=== PATIENT | female | born 1950 | race Caucasian/White ===

== ENCOUNTER 2017-07-23 17:23 | Emergency (ER) | payer MEDICARE, OTHER ==
[~2017-07-23] VITALS: Ht 157.5 cm; Wt 68.0 kg
[~2017-07-23 17:23] MED LIST: ADVAIR DISK1 INH; ALBUTEROL S2.5 MG/.5 IN; ALBUTEROL2.5 MG/3 M IN; ALBUTEROL2.5 MG/31 IN; AMOX/K CLAV875 M1 PO; AMOXICILLIN500 MG PO; ATROVENT I0.5 MG/VIA IN; CIPROFLOXACN500 MG PO; COMBIVENT IN; DALIRESP500 MCG PO; DEPO-MEDROL80 MG/ML IM; DUONEB IN; FLOVENT HFA44 MCG IN; FLUARIX QUADRIV1 IN1 IM; IPRATROPIUM BROMIDE; IPRATROPIUM BROMIDE IN; LEVOTHYROXIN50 MC1 PO; LEVOTHYROXIN88 MC1 PO; MEDDOSEPAK OR; MICARDIS HC1 OR; PNEUMOVAX 23 IM; PROVENTIL HFA IN; PROVENTIL0.083 %; SINGULAIR10 MG OR; [UNRECOGNIZED DRUG - OTHER] IN
[2017-07-23] MEDS ORDERED: PREDNISONE10 MG PO (17:53)
[2017-07-23 18:13] LABS: HEMATOCRIT 40.6 % (37.0-47.0); HEMOGLOBIN 13.6 g/dl (12.0-16.0); IMMATURE GRANULOCYTES 0.6 % (0.0-1.0); MEAN CELL VOLUME 99.5 fL CALC (80.0-100.0); MEAN CORPUSCULAR HGB 33.3 pG CALC (26.0-32.0); MEAN CORPUSCULAR HGB CONC 33.5 g/L CALC (32.0-36.0); NEUT# 12.11 thou/uL (2.00-7.15); RED BLOOD COUNT 4.08 mill/uL (4.20-5.60); RED CELL DISTRI WIDTH 11.6 % (11.5-15.5)
[2017-07-23 18:15] LABS: ANION GAP 15 (6-22 (CALC)); BUN 13 mg/dL (8-23); BUN/CREATININE RATIO 22 (12-20 (CALC)); CALCIUM 10.1 mg/dL (8.4-10.2); CARBON DIOXIDE 29 mmol/l (22-30); CHLORIDE 98 mmol/l (95-108); CREATININE 0.6 mg/dL (0.5-1.0); GFR > 60 ML/MIN (>=60 (CALC)); GFR FOR AFR.AMER. > 60 ML/MIN (>=60 (CALC)); GLUCOSE 237 mg/dL (82-115); POTASSIUM 4.7 mmol/l (3.5-5.1); SODIUM 137 mmol/l (137-146)
[2017-07-23 22:02] VITALS: BP 119/73
== END 2017-07-23 22:02 | disposition short-term general hospital (02) ==
LOC: ED 17:23
PROVIDERS: Family Medicine
PROC: 0B9 Respiratory System, Drainage (ICD-10-PCS; principal; 2017-07-23)
DX: S27.2XXA Traumatic hemopneumothorax, initial encounter (principal); W17.89XA Other fall from one level to another, initial encounter; Y92.009 Unspecified place in unspecified non-institutional (private) residence as the place of occurrence of the external cause

== ENCOUNTER 2021-01-24 16:10 | Observation (INO) | payer MEDICARE, MEDICAID ==
[~2021-01-24] VITALS: Ht 157.5 cm; Wt 64.8 kg
[~2021-01-24 16:10] MED LIST changes: +PREDNISONE10 MG PO
--- NOTE | 2021-01-24 16:11 | NUR ---
PT TO ROOM VIA W/C
[2021-01-24 16:52] LABS: HEMATOCRIT 38.2 % (37.0-47.0); HEMOGLOBIN 12.3 g/dl (12.0-16.0); IMMATURE GRANULOCYTES 0.5 % (0.0-5.0); MEAN CELL VOLUME 101.3 fL CALC (80.0-100.0); MEAN CORPUSCULAR HGB 32.6 pG CALC (26.0-32.0); MEAN CORPUSCULAR HGB CONC 32.2 g/dL CAL (32.0-36.0); NEUT# 9.26 thou/uL (2.00-7.15); RED BLOOD COUNT 3.77 mill/uL (4.20-5.60); RED CELL DISTRI WIDTH 11.9 % (11.5-15.5)
[2021-01-24 17:10] LABS: ALBUMIN 4.2 g/dL (3.2-5.0); ALKALINE PHOSPHATASE 118 u/l (38-126); ANION GAP 12 (6-22 (CALC)); BILIRUBIN, TOTAL 0.7 mg/dL (0.0-1.4); BUN 6 mg/dL (8-23); BUN/CREATININE RATIO 15 (12-20 (CALC)); CARBON DIOXIDE 34 mmol/l (22-30); CHLORIDE 87 mmol/l (95-108); CREATININE 0.4 mg/dL (0.5-1.0); GFR > 60 ML/MIN (>=60 (CALC)); GFR FOR AFR.AMER. > 60 ML/MIN (>=60 (CALC)); LIPASE 50 u/l (23-300); POTASSIUM 3.8 mmol/l (3.5-5.1); SGOT/AST 39 u/l (9-36); SODIUM 129 mmol/l (137-146); TOTAL PROTEIN 8.1 g/dL (6.3-8.2)
--- NOTE | 2021-01-24 17:53 | NUR ---
ADMIN 9ML DUONEB S/P COVID RESULTS, VIA MASK. PT C NAD. VSS. FAMILY IN ROOM C PT. PT SPEAKING FULL, CLEAR SENTENCES. AUTO SERVICE STATION ATTENDANT TO MONITOR.
--- NOTE | 2021-01-24 19:02 | NUR ---
REPORT TO TITI ANDERSON
--- NOTE | 2021-01-24 19:15 | NUR ---
PT ASSISTED TO BEDSIDE COMMODE, CONTINENT OF CLEAR YELLOW URINE SPECIMEN SENT, SELF KARL CARE COMPLETED. AWARE OF CONTIUED NEED FOR SPUTUM SPECIMEN. DAUGHTER AT BEDSIDE PT AND VISITOR AWARE OF PLANNED ADMISSION
--- NOTE | 2021-01-24 19:23 | NUR ---
REPORT CALLED TO DONNA ON MED SURG.
[2021-01-24] MEDS ORDERED: LEVOTHYROXIN100 MCG PO (19:27)
[2021-01-24] MEDS ORDERED: AMLODIPINE BES2.5 MG PO (19:28)
[2021-01-24] MEDS ORDERED: LOPRESSOR25 MG PO (19:29)
--- NOTE | 2021-01-24 19:49 | NUR ---
PT TRANSPORTED TO [facility] VIA WHEELCHAIR ON OXYGEN, WITH ALL BELONGINGS WITH PT, PT BELONGINGS RECORD COMPLETED.
[2021-01-24 20:00] VITALS: BP 144/71
--- NOTE | 2021-01-24 20:00 | NUR ---
PATIENT ARRIVED FROM ER AT 1999. REPORT GIVEN BY TITI. PATIENT IS ALERT AND ORIENTED X 4. RESP LABORED WITH 4L VIA NC. PRODUCTIVE COUGH PRESENT- GREEN, THICK SPUTUM. IV SLAINE LOCKED. PATIENT ORIENTED TO BED, CALL LIGHT AND ROOM. PLAN OF CARE DISCUSSED. PATIENT INFORMED TO CALL WITH ANY QUESTIONS OR CONCERNS.
--- NOTE | 2021-01-24 20:07 | NUR ---
ZITHROMAX NOT AVIALBLE IN [place], MIDDLE SCHOOL DIRECTOR CALLED FOR MEDICATION
[2021-01-24 20:34] LABS: URINE BILIRUBIN - DIPSTICK NEGATIVE (NEGATIVE); URINE BLOOD DIPSTICK LARGE (NEGATIVE); URINE CLARITY CLEAR; URINE COLOR YELLOW; URINE GLUCOSE - DIPSTICK NEGATIVE (NEGATIVE); URINE KETONE 15 mg/dL (NEGATIVE); URINE LEUK ESTERASE SMALL (Negative); URINE NITRITE - DIPSTICK NEGATIVE (Negative); URINE PROTEIN - DIPSTICK NEGATIVE (NEG-TRACE); URINE UROBILINOGEN - DIPSTICK 0.2 E.U./dL (0.2)
[2021-01-24 20:41] LABS: URINE SQUAMOUS EPITHELIAL CELL FEW EPI/hpf (0-FEW); URINE WBC 0-2 WBC/hpf (0-5)
[2021-01-25] VITALS: BP 108/62
--- NOTE | 2021-01-25 00:08 | NUR ---
PATIENT RESTING WITH EYE CLOSED. FALL AND SAFTEY PRECAUTIONS IN PLACE. LABORED BREATHING WITH EXCERTION.
[2021-01-25 03:18] VITALS: BP 123/56
[2021-01-25 05:02] LABS: HEMATOCRIT 38.6 % (37.0-47.0); HEMOGLOBIN 12.5 g/dl (12.0-16.0); IMMATURE GRANULOCYTES 0.7 % (0.0-5.0); MEAN CELL VOLUME 102.1 fL CALC (80.0-100.0); MEAN CORPUSCULAR HGB 33.1 pG CALC (26.0-32.0); MEAN CORPUSCULAR HGB CONC 32.4 g/dL CAL (32.0-36.0); NEUT# 7.82 thou/uL (2.00-7.15); RED BLOOD COUNT 3.78 mill/uL (4.20-5.60); RED CELL DISTRI WIDTH 11.9 % (11.5-15.5)
--- NOTE | 2021-01-25 05:07 | NUR ---
PASTIENT RESTING WITH EYES CLOSED. FALL AND SAFTEY PRECAUTIONS IN PLACE. NO S/S OF DISTRESS NOTED.
[2021-01-25 05:25] LABS: ANION GAP 10 (6-22 (CALC)); BUN 7 mg/dL (8-23); BUN/CREATININE RATIO 18 (12-20 (CALC)); CARBON DIOXIDE 35 mmol/l (22-30); CHLORIDE 93 mmol/l (95-108); CREATININE 0.4 mg/dL (0.5-1.0); GFR > 60 ML/MIN (>=60 (CALC)); GFR FOR AFR.AMER. > 60 ML/MIN (>=60 (CALC)); POTASSIUM 4.3 mmol/l (3.5-5.1); SODIUM 133 mmol/l (137-146)
--- NOTE | 2021-01-25 07:08 | NUR ---
PT RESTING COMFORTABLY IN BED. NAD. VSS. SPEAKING FULL CLEAR SENTENCES.
[2021-01-25 08:00] VITALS: BP 136/52
--- NOTE | 2021-01-25 09:57 | NUR ---
PT AWAKE, ALERT, ORIENTED X 3. LUNGS CLEAR BUT DIMINISHED IN THE BASES, PT USES 4 LPM HERE AND AT HOME. PT APPEARS TO BE DOING WELL TODAY.
[2021-01-25 11:33] VITALS: BP 111/47
--- NOTE | 2021-01-25 13:50 | NUR ---
PT SEEN AT REST IN THE ROOM, NO DISTRESS. PT CONTINUES WITH 4 LPM NC AT HOME.
--- NOTE | 2021-01-25 14:00 | NUR ---
PT RESTING IN BED. NAD. VSS. CLERK ANALYST TO MONITOR.
--- NOTE | 2021-01-25 16:24 | NUR ---
PT SEEN IN BED, NAPPING. NO DISTRESS, NO COMPLAINTS OF SHORTNESS OF BREATH.
[2021-01-25 16:27] VITALS: BP 127/56
--- NOTE | 2021-01-25 19:19 | NUR ---
REPORT GIVEN BY KATY. PATIENT IS IN BED WATCHING TV. RESP LABORED WITH EXCERTION AND AT TIMES SHALLOW BREATHS TAKEN, 4L O2 VIA NC. ALERT AND ORIENTED X 4. PRODUCTIVE COUGH PRESENT WITH THICK GREEN SPUTUM. NO S/S OF DISTRESS NOTED. IV SALINE LOCKED. PLAN OF CARE DISCUSSED. PATIENT INFORMED TO CALL WITH ANY QUESTIONS OR CONCERNS. FALL AND SAFTEY PRECAUTIONS IN PLACE.
[2021-01-25 19:50] VITALS: BP 118/60
[2021-01-26] VITALS: BP 115/63
[2021-01-26 04:00] VITALS: BP 140/68
[2021-01-26 05:40] LABS: HEMATOCRIT 38.7 % (37.0-47.0); IMMATURE GRANULOCYTES 1.1 % (0.0-5.0); MEAN CELL VOLUME 103.5 fL CALC (80.0-100.0); MEAN CORPUSCULAR HGB 32.1 pG CALC (26.0-32.0); NEUT# 11.63 thou/uL (2.00-7.15); RED BLOOD COUNT 3.74 mill/uL (4.20-5.60); RED CELL DISTRI WIDTH 12.2 % (11.5-15.5)
[2021-01-26 05:51] LABS: ALBUMIN 3.8 g/dL (3.2-5.0); ALKALINE PHOSPHATASE 87 u/l (38-126); ANION GAP 9 (6-22 (CALC)); BUN 13 mg/dL (8-23); BUN/CREATININE RATIO 27 (12-20 (CALC)); CARBON DIOXIDE 36 mmol/l (22-30); CHLORIDE 95 mmol/l (95-108); CREATININE 0.5 mg/dL (0.5-1.0); GFR > 60 ML/MIN (>=60 (CALC)); GFR FOR AFR.AMER. > 60 ML/MIN (>=60 (CALC)); SGOT/AST 29 u/l (9-36); SODIUM 136 mmol/l (137-146)
[2021-01-26 06:22] LABS: BILIRUBIN, TOTAL 0.3 mg/dL (0.0-1.4)
[2021-01-26 07:39] VITALS: BP 114/47
--- NOTE | 2021-01-26 09:34 | NUR ---
PT SEEN AWAKE, ALERT, ORIENTED X 3. LUNGS CLEAR BUT DIMINISHED THROUGHOUT, USES 4 LPM NC. PT WITH DIFFICULTY CLEARING THICK PHLEGM.
[2021-01-26 11:17] VITALS: BP 141/60
--- NOTE | 2021-01-26 13:54 | NUR ---
PT SEEN AT REST IN THE BED, NO DISTRESS. PT SEEN BY DR PELAYO THIS MORNING.
[2021-01-26 15:00] VITALS: BP 126/52
--- NOTE | 2021-01-26 17:43 | NUR ---
PT CONTINUES BEFORE, NO ACUTE CHANGE IN STATUS.
--- NOTE | 2021-01-26 19:16 | NUR ---
RECEIVED REPORT FROM NURSE BURNS PATIENT CURRENTLY IN BED, HOOKED TO O2 @ 4LPM VIA NC, SHALLOW UNLABORED BREATHING AT THIS TIME, PRODUCTIVE COUGH YELLOW THICK, ACTIVE BOWEL SOUNDS, LBM 5/30, SCATTERED BRUISING BOTH ARMS AND FEET,DENIES PAIN AT THIS TIME, CALL LIGHT AT REACH.
[2021-01-26 19:50] VITALS: BP 138/69
[2021-01-27] VITALS: BP 145/77
--- NOTE | 2021-01-27 | NUR ---
PATIENT SITTING IN BED HAVING COUGH SPELLS, EASING UP PER PATIENT REMAINS ON O2 @ 4LPM VIA NC, DENIES PAIN CALL LIGHT AT REACH.
--- NOTE | 2021-01-27 04:20 | NUR ---
PATIENT RESTING IN BED, EYS CLOSED, REMAINS ON O2 @ 4LPM VIA NC, BREATHING SHALLOW, UNLABORED, CALL LIGHT AT REACH.
[2021-01-27 04:41] VITALS: BP 138/75
--- NOTE | 2021-01-27 07:00 | NUR ---
PT REPORT RECEIVED FROM NIGHT NURSEQUINTON
[2021-01-27 07:30] VITALS: BP 149/67
--- NOTE | 2021-01-27 08:00 | NUR ---
PT WAS FOUND RESTING IN BED IN SEMI-FOWLERS POSITION;PT IS A&OX3;VS AND ASSESSMENT WERE COMPLETED;PT IS REPORTING NO PAIN AT THIS TIME;HEART SOUNDS ARE REGULAR IN RATE AND RHYTHM;TELE IS IN PLACE;LUNG SOUNDS ARE DIMINISHED IN ALL LOBES;RESPIRATIONS ARE EVEN AND UNLABORED ON O2@4L VIA NC;PT IS REPORTING EXERTIONAL SOB AND PRODUCTIVE COUGH WITH THICK,WHITE,FROTHY SPUTUM;#22G IV IN LW IS SL, PATENT AND FREE OF COMPLICATIONS AT THIS TIME;SAFETY PRECAUTIONS IN PLACE;CALL LIGHT WITHIN REACH;BED IN LOWEST POSITION;PT ENCOURAGED TO CALL WITH ANY NEEDS OR CONCERNS;WILL CONTINUE TO MONITOR.
[2021-01-27] MEDS ORDERED: PREDNISONE20 MG PO (10:46)
[2021-01-27 11:10] VITALS: BP 150/73
--- NOTE | 2021-01-27 12:00 | NUR ---
PT WAS FOUND SITTING UP ON THE SIDE OF THE BED;PT IS BEING DISCHARGED TODAY SO IV WAS REMOVED WELL TELE;PT IS REPORTING NO PAIN AT THIS TIME;O2@4L VIA NC IS STILL IN PLACE;SAFETY PRECAUTIONS IN PLACE;CALL LIGHT WITHIN REACH;BED IN LOWEST POSITION;WILL CONTINUE TO MONITOR.
[2021-01-27] MEDS ORDERED: ZITHROMAX250 MG PO (12:37)
--- NOTE | 2021-01-27 13:34 | NUR ---
Discharge instructions given. Patient verbalizes understanding of same. Discharged in stable condition via Wheelchair to Home with family. All belongings sent with pt. DISCHARGE PACKET WAS GIVEN TO PT;DC INSTRUCTIONS AND MEDICATIONS WERE EXPLAINED TO PT;PT EXPRESSED UNDERSTANDING AND HAD NO FURTHER QUESTIONS;SIGNATURE WAS OBTAINED;IV WAS REMOVED WITH NO COMPLICATIONS AND CATHETER INTACT;TELE WAS REMOVED; PT WAS TRANSPORTED IN STABLE CONDITION VIA WC TO [facility] ACCOMPANIED BY STAFF;ALL PT BELONGINGS WERE SENT WITH PT;PT WILL BE TRANSPORTED HOME WITH FAMILY.
== END 2021-01-27 13:34 | disposition home or self-care (01) ==
LOC: ED 16:10 → ED-I 18:20 → ED 18:31 → MS2 18:32
PROVIDERS: ADMIT Internal Medicine; ATTEND Internal Medicine
DX: J44.1 Chronic obstructive pulmonary disease with (acute) exacerbation (principal); J20.9 Acute bronchitis, unspecified; J44.0 Chronic obstructive pulmonary disease with (acute) lower respiratory infection; J96.21 Acute and chronic respiratory failure with hypoxia; I10 Essential (primary) hypertension; E03.9 Hypothyroidism, unspecified; Z99.81 Dependence on supplemental oxygen; Z20.822 Contact with and (suspected) exposure to COVID-19
CPT/HCPCS: G0378

== ENCOUNTER 2021-02-16 03:16 | Observation (INO) | payer MEDICARE, MEDICAID ==
[~2021-02-16] VITALS: Ht 157.5 cm; Wt 61.0 kg
[~2021-02-16 03:16] MED LIST changes: +AMLODIPINE BES2.5 MG PO; +LEVOTHYROXIN100 MCG PO; +LOPRESSOR25 MG PO; +PREDNISONE20 MG PO; +ZITHROMAX250 MG PO
--- NOTE | 2021-02-16 03:17 | NUR ---
BY EMS TO ROOM ON NRB MASK CHANGED TO 4L/NC
--- NOTE | 2021-02-16 03:47 | NUR ---
Reassessment of patient completed.
[2021-02-16 03:54] LABS: HEMATOCRIT 40.8 % (37.0-47.0); HEMOGLOBIN 13.4 g/dl (12.0-16.0); IMMATURE GRANULOCYTES 0.5 % (0.0-5.0); MEAN CELL VOLUME 100.2 fL CALC (80.0-100.0); MEAN CORPUSCULAR HGB 32.9 pG CALC (26.0-32.0); MEAN CORPUSCULAR HGB CONC 32.8 g/dL CAL (32.0-36.0); NEUT# 11.96 thou/uL (2.00-7.15); RED BLOOD COUNT 4.07 mill/uL (4.20-5.60); RED CELL DISTRI WIDTH 11.8 % (11.5-15.5)
[2021-02-16 04:04] LABS: ALBUMIN 4.2 g/dL (3.2-5.0); ALKALINE PHOSPHATASE 75 u/l (38-126); ANION GAP 12 (6-22 (CALC)); BILIRUBIN, TOTAL 0.4 mg/dL (0.0-1.4); BUN 17 mg/dL (8-23); BUN/CREATININE RATIO 34 (12-20 (CALC)); CARBON DIOXIDE 31 mmol/l (22-30); CHLORIDE 92 mmol/l (95-108); CREATININE 0.5 mg/dL (0.5-1.0); GFR > 60 ML/MIN (>=60 (CALC)); GFR FOR AFR.AMER. > 60 ML/MIN (>=60 (CALC)); POTASSIUM 3.8 mmol/l (3.5-5.1); SODIUM 131 mmol/l (137-146); TOTAL PROTEIN 6.9 g/dL (6.3-8.2)
[2021-02-16 04:14] LABS: SGOT/AST 74 u/l (9-36)
[2021-02-16 04:16] LABS: MYOGLOBIN 30 ng/mL (0 - 62)
--- NOTE | 2021-02-16 04:41 | NUR ---
Reassessment of patient completed. No distress noted. Pt resting quietly in room, call light within reach, one side rail is up.
[2021-02-16 05:25] VITALS: BP 153/83
--- NOTE | 2021-02-16 05:25 | NUR ---
Admission Note Report Given to: ALLEN Transported by: Wheelchair Stretcher Transported with: X Nurse Transporter Patent IV O2 Bi Solutions Architect Location: ICU X MS2
--- NOTE | 2021-02-16 06:00 | NUR ---
PT MEDICATED ORDERS PROVIDE.
--- NOTE | 2021-02-16 07:00 | NUR ---
PT REPORT RECEIVED FROM NIGHT NURSEALLEN.
[2021-02-16 08:00] VITALS: BP 149/84
--- NOTE | 2021-02-16 08:00 | NUR ---
PT WAS FOUND RESTING IN BED IN SEMI-TALAVERA'S POSITION;PT IS A&O X3;VS AND ASSESSMENT WERE COMPLETED;PT HAS NO REPORTS OF PAIN AT THIS TIME;HEART SOUNDS ARE REGULAR IN RATE AND RHYTHM;LUNG SOUNDS ARE CLEAR AND DIMINISHED IN ALL LOBES;PT IS REPORTING A PRODUCTIVE COUGH WITH A SMALL AMOUNT OF CLEAR, THICK SPUTUM;RESPIRATIONS ARE EVEN AND UNLABORED ON O2@2L VIA NC;#20G IV IN LAC IS SL,PATENT AND FREE OF COMPLICATIONS AT THIS TIME;SAFETY PRECAUTIONS IN PLACE;CALL LIGHT WITHIN REACH;PT ENCOURAGED TO CALL WITH ANY NEEDS OR CONCERNS;BED IN LOWEST POSITION;WILL CONTINUE TO [id number].
--- NOTE | 2021-02-16 09:15 | NUR ---
PT VOICED CONCERNS OVER HER NOSE FEELING DRY AND REQUESTED HUMIDIFIED AIR BE ADDED TO HER O2 AT THIS TIME;PT CONTINUES TO HAVE O2@2L VIA NC IN PLACE;
[2021-02-16 09:33] LABS: URINE BILIRUBIN - DIPSTICK NEGATIVE (NEGATIVE); URINE BLOOD DIPSTICK LARGE (NEGATIVE); URINE COLOR YELLOW; URINE GLUCOSE - DIPSTICK NEGATIVE (NEGATIVE); URINE KETONE TRACE mg/dL (NEGATIVE); URINE LEUK ESTERASE NEGATIVE (NEGATIVE); URINE PROTEIN - DIPSTICK TRACE mg/dL (NEG-TRACE); URINE SPECIFIC GRAVITY 1.025; URINE UROBILINOGEN - DIPSTICK 0.2 E.U./dL (0.2)
[2021-02-16 09:39] LABS: URINE NITRITE - DIPSTICK NEGATIVE (Negative)
[2021-02-16 09:56] LABS: URINE SQUAMOUS EPITHELIAL CELL FEW EPI/hpf (0-FEW); URINE WBC 0-2 WBC/hpf (0-5)
--- NOTE | 2021-02-16 10:30 | NUR ---
AND DAPHNIE BIRMINHGAM AT BEDSIDE DISCUSSING POC WITH PT
--- NOTE | 2021-02-16 12:00 | NUR ---
PT WAS FOUND SITTING UP ON THE SIDE OF THE BED EATING LUNCH;O2@2L VIA NC IS IN PLACE;NEWLY ORDERED MEDICATIONS WERE GIVEN;PT EXPRESSED ANXIETY AND NEEDING TO REST;ATIVAN 1MG PO PRN WAS GIVEN;SAFETY PRECAUTIONS IN PLACE;CALL LIGHT WITHIN REACH;WILL CONTINUE TO MONITOR.
[2021-02-16 15:00] VITALS: BP 117/52
--- NOTE | 2021-02-16 16:00 | NUR ---
PT WAS FOUND RESTING IN BED IN SEMI-TALAVERA'S POSITION;PT IS REPORTING SOB;PULSE OX WAS TAKEN AND O2 SAT WAS 99% ON O2@2L VIA NC;PT IS REPORTING FEELING ANXIOUS AND SHE JUST NEEDS TO RELAX;#20G IV IN LAC IS SL,PATENT AND FREE OF COMPLICATIONS AT THIS TIME;SAFETY PRECAUTIONS IN PLACE;CALL LIGHT WITHIN REACH;WILL CONTINUE TO MONITOR
--- NOTE | 2021-02-16 16:15 | NUR ---
CALL WAS MADE TO ;PT HAD DAUGHTER BRING IN HER HOME MEDICATIONS/PREDNISONE,DULERA AND SPIRIVA RESPIMAT/ SO SHE COULD USE THEM HERE; ADVISED TO CONTINUE WITH HOME MEDS IN PLACE OF DUONEBS TREATMENT HERE;ORDER FAXED TO [facility] WILL BE SENT TO PHARMACY TO PROFILE;
[2021-02-16 19:45] VITALS: BP 144/85
--- NOTE | 2021-02-16 19:48 | NUR ---
PT SITTING ON THE SIDE OF THE BED. ASSESSMENT COMPLETED AT THIS TIME. LUNG SOUNDS ARE DIMINISHED. PT REPORTS THAT SHE EATS A COUPLE OF BITES AND RESTS IN BETWEEN DUE TO GETTING SOB WHILE EATING OR TALKING. PT IS VERY TALKATIVE AT THIS TIME. OXYGEN W/HUMIDITY IS ON NC 2L. PT MEDICATED ORDERS PROVIDE.
--- NOTE | 2021-02-16 20:02 | NUR ---
PT SITTING ON SIDE OF THE BED JUST FINISHED DINNER TRAY. PROVIDED MEDICATIONS ORDERS PROVIDE AND WARMED PRUNE JUICE/REFUSED MOM TO BE ADDED. 3X DAYS FOR STOOL OUTPUT AT THIS TIME.
--- NOTE | 2021-02-16 23:40 | NUR ---
PT MEDICATED FOR ANXIOUSNESS. DENIES ANY OTHER NEEDS AT THIS TIME. V/S WERE JUST ASSESSED.
[2021-02-16 23:45] VITALS: BP 122/81
--- NOTE | 2021-02-17 02:36 | NUR ---
PT IS IN BED WITH DOOR OPEN, LIGHTS ARE OFF. SHE APPEARS TO BE SLEEPING, EVEN RESPIRATIONS, NO S/O DISTRESS.
--- NOTE | 2021-02-17 03:40 | NUR ---
V/S ASSESSED. OXYGEN SAT LEVEL 100% ON 2L NC AT THIS TIME. PT WAS ASLEEP WHEN WE ENTERED THE ROOM. DENIES ANY OTHER NEEDS.
[2021-02-17 04:00] VITALS: BP 123/72
[2021-02-17 05:29] LABS: HEMATOCRIT 36.2 % (37.0-47.0); HEMOGLOBIN 11.8 g/dl (12.0-16.0); MEAN CELL VOLUME 101.7 fL CALC (80.0-100.0); MEAN CORPUSCULAR HGB 33.1 pG CALC (26.0-32.0); MEAN CORPUSCULAR HGB CONC 32.6 g/dL CAL (32.0-36.0); RED BLOOD COUNT 3.56 mill/uL (4.20-5.60); RED CELL DISTRI WIDTH 11.9 % (11.5-15.5)
[2021-02-17 05:53] LABS: ALBUMIN 3.5 g/dL (3.2-5.0); ALKALINE PHOSPHATASE 59 u/l (38-126); ANION GAP 11 (6-22 (CALC)); BUN 20 mg/dL (8-23); BUN/CREATININE RATIO 44 (12-20 (CALC)); CARBON DIOXIDE 33 mmol/l (22-30); CHLORIDE 92 mmol/l (95-108); CREATININE 0.4 mg/dL (0.5-1.0); GFR > 60 ML/MIN (>=60 (CALC)); GFR FOR AFR.AMER. > 60 ML/MIN (>=60 (CALC)); SGOT/AST 48 u/l (9-36); SODIUM 132 mmol/l (137-146)
[2021-02-17 05:54] LABS: BILIRUBIN, TOTAL 0.2 mg/dL (0.0-1.4)
--- NOTE | 2021-02-17 07:15 | NUR ---
REPORT RECEIVED FROM MONICA VILLA
[2021-02-17 08:19] VITALS: BP 133/64
--- NOTE | 2021-02-17 08:25 | NUR ---
PT RESTING IN SEMI FOWLERS POSITION EATING BREAKFAST,A&O X3;VS OBTAINED AND ASSESSMENT COMPLETED;PT DENIES ANY CURRENT PAIN OR DISCOMFORTS,PAIN SCALE AND REPORTING EDUCATED;PT MEDICATED WITH PRN ATIVAN 1MG PO PER REQUEST;RESPIRATIONS SHALLOW ON O2 @ 2L VIA NC, PT IS HOME OXYGEN DEPENDENT;ABDOMEN SOFT ON PALPATION AND ACTIVE IN ALL 4 QUADRANTS;LAST BM 02/14/21, PT MEDICATED WITH PRN MOM;WEAK PEDAL PULSES;GENERALIZED BRUISING NOTED,SKIN OTHERWISE INTACT;#20G TO LAC FLUSHED AND PATENT,SITE APPEARS HEALTHY;PT DENIES ANY ADDITIONAL NEEDS AND IS ENCOURAGED TO CALL FOR ASSISTANCE IF NEEDED;FALL PRECAUTIONS IN PLACE WITH BED IN THE LOWEST POSITION AND CALL LIGHT IN REACH;WILL CONTINUE TO MONITOR
--- NOTE | 2021-02-17 11:40 | NUR ---
PT RESTING AT BEDSIDE;RESPIRATIONS EVEN AND UNLABORED ON O2 @ 2L VIA NC;PT DENIES ANY CURRENT PAIN OR NEEDS;IV SITE PATENT;ASSESSMENT REMAINS UNCHANGED;ENCOURAGED TO CALL FOR ASSISTANCE IF NEEDED;CALL LIGHT IN REACH;WILL CONTINUE TO MONITOR
[2021-02-17 11:44] VITALS: BP 133/70
--- NOTE | 2021-02-17 15:25 | NUR ---
PT RESTING IN SEMI FOWLERS POSITION;RESPIRATIONS EVEN AND UNLABORED ON O2 @ 2L VIA NC;PT DENIES ANY CURRENT PAIN OR DISCOMFORTS;IV SITE PATENT;PT ENCOURAGED TO CALL FOR ASSISTANCE IF NEEDED;FALL PRECAUTIONS IN PLACE WITH CALL LIGHT IN REACH;WILL CONTINUE TO MONITOR
[2021-02-17 15:32] VITALS: BP 123/60
[2021-02-17 19:00] VITALS: BP 133/72
--- NOTE | 2021-02-17 20:00 | NUR ---
PATIENT RESTING IN BED WATCHING TV, REPORT GIVEN BY NURSE DARION, PATIENT HAS A SALINE LOCK ON LAC PATENT FLUSHES WELL, DENIES PAIN AT THIS TIME, VERBALIZED THAT SHE HAS WEAKNESS, NON PRODUCTIVE COUGH, DIMISHED LUNG SOUNDS ON BILATERAL LUNG FIELD, ACTIVE BOWEL SOUNDS LBM 02/14, PRUNE JUICE GIVEN, ON O2 @ 2LPM NC, BREATHING SHALLOW, EXERTIONAL DYSPNEA NOTED, PATIENT C/O ANXIETY WILL MEDICATE, PATIENT ASSISTED TO BEDSIDE COMODE AND ASSISTED BACK IN BED, CALL LIGHT AT REACH.
--- NOTE | 2021-02-17 23:56 | NUR ---
PATIENT RESTING IN BED WITH EYES CLSOED, BREATHING SHALLOW, NOT IN DISTRESS REMAINS ON O2 @ 2LPM VIA NC CALL LIGHT AT REACH.
--- NOTE | 2021-02-18 03:50 | NUR ---
PATIENT RESTING IN BED WITH EYES CLOSED, REMAINS ON O2 @ 2LPM, NOT IN DISTRESS, NO DISCOMFORTS AT THIS TIME, CALL LIGHT AT REACH.
[2021-02-18 04:00] VITALS: BP 116/49
[2021-02-18 06:48] LABS: HEMATOCRIT 37.9 % (37.0-47.0); HEMOGLOBIN 12.4 g/dl (12.0-16.0); MEAN CELL VOLUME 101.6 fL CALC (80.0-100.0); MEAN CORPUSCULAR HGB 33.2 pG CALC (26.0-32.0); MEAN CORPUSCULAR HGB CONC 32.7 g/dL CAL (32.0-36.0); RED BLOOD COUNT 3.73 mill/uL (4.20-5.60); RED CELL DISTRI WIDTH 11.8 % (11.5-15.5)
[2021-02-18 07:00] LABS: ANION GAP 9 (6-22 (CALC)); BUN 16 mg/dL (8-23); BUN/CREATININE RATIO 34 (12-20 (CALC)); CARBON DIOXIDE 38 mmol/l (22-30); CHLORIDE 89 mmol/l (95-108); CREATININE 0.5 mg/dL (0.5-1.0); GFR > 60 ML/MIN (>=60 (CALC)); GFR FOR AFR.AMER. > 60 ML/MIN (>=60 (CALC)); POTASSIUM 4.2 mmol/l (3.5-5.1); SODIUM 132 mmol/l (137-146)
[2021-02-18 07:01] LABS: MAGNESIUM 2.5 mg/dL (1.6-2.3)
--- NOTE | 2021-02-18 07:10 | NUR ---
REPORT RECEIVED FROM MONICA HAIRSTON
[2021-02-18 08:35] VITALS: BP 124/60
--- NOTE | 2021-02-18 08:35 | NUR ---
PT RESTING ON BEDSIDE COMMMODE,A&O X3;VS OBTAINED AND ASSESSMENT COMPLETED;PT DENIES ANY CURRENT PAIN BUT DOES REPORT ANXIETY,PT MEDICATED WITH PRN ATIVAN 1MG PO;RESPIRATIONS SHALLOW ON O2 @ 2L VIA NC-PT IS HOME OXYGEN DEPENDENT;NON-PRODUCTIVE COUGH;ABDOMEN SOFT ON PALPATION AND ACTIVE IN ALL 4 QUADRANTS;WEAK PEDAL PULSES;SKIN INTACT;#20G TO LAC FLUSHED AND PATENT,SITE APPEARS HEALTHY;PT DENIES ANY ADDITIONAL NEEDS AND IS NECOURAGED TO CALL FOR ASSISTANCE IF NEEDED;FALL PRECAUTIONS IN PLACE WITH CALL LIGHT IN REACH;WILL CONTINUE TO MONITOR
--- NOTE | 2021-02-18 09:11 | NUR ---
AT BEDSIDE DISCUSSING POC.
[2021-02-18] MEDS ORDERED: PREDNISONE10 MG PO ×2 (11:17→11:19)
[2021-02-18] MEDS ORDERED: XANAX0.25 MG PO (11:17)
[2021-02-18] MEDS ORDERED: ZPAK PO (11:28)
--- NOTE | 2021-02-18 12:00 | NUR ---
PT RESTING AT BEDSIDE EATING LUNCH;RESPIRATIONS EVEN AND UNLABORED ON O2 @ 2L VIA NC;PT DENIES ANY CURRENT PAIN OR DISCOMFORTS;IV SITE PATENT AND ABX STARTED PER ORDER;PT EDUCATED ON PLANS TO D/C TO REHAB THIS AFTERNOON AND PT VERBALIZES UNDERSTANDING;AWAITING APPROX TIME FOR TRANSPORTATION PICKUP;PT ENCOURAGED TO CALL FOR ASSISTANCE IF NEEDED;CALL LIGHT IN REACH;WILL CONTINUE TO MONITOR
--- NOTE | 2021-02-18 13:45 | NUR ---
ALL DISCHARGE INSTRUCTIONS PROVIDED AT THIS TIME;PT INSTRUCTED TO F/U WITH PCP, PARTICIPATE IN REHAB, TAKE XANAX DIRECTED, COMPLETE COURSE OF ZPACK AND TAPER DOSE PREDNISONE;PT VERBALIZES UNDERSTANDING AND DENIES ANY ADDITIONAL QUESTIONS OR NEEDS;IV REMOVED WITH CATHETER INTACT;PT TO BE DISCHARGED TO [facility] VIA [facility] AT APROX 1430;PT DENIES ANY ADDITIONAL NEEDS;CALL LIGHT IN REACH;WILL CONTINUE TO MONITOR
--- NOTE | 2021-02-18 13:56 | NUR ---
REPORT CALLED TO SHYANN AT [facility].
--- NOTE | 2021-02-18 15:40 | NUR ---
PT RESTING IN SEMI FOWLERS POSITION;RESPIRATIONS EVEN AND UNLABORED ON O2 @ 2L VIA NC;PT DENIES ANY CURRENT PAIN OR NEEDS;TRANSPORTATION TIME MOVED DUE TO [facility] NEEDING TO TRANSPORT A CRITICAL PT FROM ER, PT EDUCATED AND VERBALIZES UNDERSTANDING;PT DENIES ANY ADDITIONAL NEEDS AND IS ENCOURAGED TO CALL FOR ASSISTANCE IF NEEDED;CALL LIGHT IN REACH;WILL CONTINUE TO MONITOR
--- NOTE | 2021-02-18 16:14 | NUR ---
PT note- patient is discharging to ECF. She is already a little dyspneic and I did speak with her about energy conservation as she left. She has cris her inpatient PT goals and should do well with follow up ECF care
--- NOTE | 2021-02-18 18:18 | NUR ---
CALL PLACED TO [facility] REGARDING PT RIDING DOUBLE TIME FOR TRANSPORT TO [facility], PER KEE AT [facility] TRANSPORT SHOULD BE ARRIVING AT APPROX [phone]. PATIENT NOTIFIED AND VERBALIZES UNDERSTANDING.MONICA BOOTHE AT [facility] ALSO NOTIFIED AT THIS TIME.
[2021-02-18 19:00] VITALS: BP 135/69
--- NOTE | 2021-02-18 20:00 | NUR ---
PT IN BED RESTING QUIETLY, ASSESSMENTS COMPLETED AT BEDSIDE. NO COMPLAINTS VOICED, BREATHING EVEN AND UNLABORED. ANICIPATED TRANSFER TO [facility], PENDING TRANSPORT COMPANY AT THIS TIME. HS MEDS ADMINSTERED PER ORDER, WILL MONITOR
[2021-02-18 20:25] VITALS: BP 135/69
--- NOTE | 2021-02-18 22:52 | NUR ---
PT LEFT VIA [facility], @ 2050 PT WAS ON A STRETCHER WITH O2 @ 2L CONTINUOUS. ALL PAPERWORK GIVEN TO TRANSPORT. NO COMPLAINTS VOICED. D/C PAPERWORK FAXED TO REGISTRATION.
--- NOTE | 2021-02-24 10:05 | NUR ---
Pneumonia post discharge follow up call completed today, `. Pt\s daughter returned call with patient. Patient is in rehab in [place] and doing very well. She will be there aprx. 1 additional week before returning to her home. Family appreciative of follow up call. No needs at this time.
== END 2021-02-18 22:52 ==
LOC: ED 03:16 → ED-I 04:25 → ED 04:42 → MS2 04:43
PROVIDERS: Family Medicine; Nurse Practitioner; Nurse Practitioner Family; ADMIT Internal Medicine; ATTEND Internal Medicine
DX: J44.1 Chronic obstructive pulmonary disease with (acute) exacerbation (principal); J20.9 Acute bronchitis, unspecified; J44.0 Chronic obstructive pulmonary disease with (acute) lower respiratory infection; R53.1 Weakness; I10 Essential (primary) hypertension; F41.9 Anxiety disorder, unspecified; Z91.81 History of falling; Z87.891 Personal history of nicotine dependence; Z20.822 Contact with and (suspected) exposure to COVID-19
CPT/HCPCS: G0378; J1650

== ENCOUNTER 2021-04-10 17:02 | Observation (INO) | payer MEDICARE, MEDICAID ==
[~2021-04-10] VITALS: Ht 157.5 cm; Wt 54.6 kg
[~2021-04-10 17:02] MED LIST changes: +XANAX0.25 MG PO; +ZPAK PO
--- NOTE | 2021-04-10 17:10 | NUR ---
TO ROOM FOR TRIAGE WITH JT AT BEDSIDE. PATIENT USES NC OXYGEN AT 3 LPM.
--- NOTE | 2021-04-10 18:00 | NUR ---
TO BEDSIDE COMMODE WITH ASISTANCE O VOID.
[2021-04-10 18:59] LABS: IMMATURE GRANULOCYTES 0.4 % (0.0-5.0); MEAN CORPUSCULAR HGB 32.7 pG CALC (26.0-32.0); MEAN CORPUSCULAR HGB CONC 31.4 g/dL CAL (32.0-36.0); NEUT# 3.4 thou/uL (2.00-7.15)
[2021-04-10 19:00] LABS: HEMATOCRIT 31.2 % (37.0-47.0); HEMOGLOBIN 9.8 g/dl (12.0-16.0)
[2021-04-10 19:14] LABS: ALBUMIN 3.6 g/dL (3.2-5.0); BUN 5 mg/dL (8-23); BUN/CREATININE RATIO 11 (12-20 (CALC)); C-REACTIVE PROTEIN 8.3 mg/dL (0-0.9); CHLORIDE 91 mmol/l (95-108); CREATININE 0.4 mg/dL (0.5-1.0); GFR > 60 ML/MIN (>=60 (CALC)); GFR FOR AFR.AMER. > 60 ML/MIN (>=60 (CALC)); POTASSIUM 3.6 mmol/l (3.5-5.1); SGOT/AST 41 u/l (9-36); SODIUM 133 mmol/l (137-146)
[2021-04-10 19:17] LABS: ALKALINE PHOSPHATASE 96 u/l (38-126); ANION GAP 7 (6-22 (CALC)); BILIRUBIN, TOTAL 0.3 mg/dL (0.0-1.4); CARBON DIOXIDE 39 mmol/l (22-30)
--- NOTE | 2021-04-10 19:36 | NUR ---
Reassessment of patient completed. No distress noted.
--- NOTE | 2021-04-10 20:27 | NUR ---
Reassessment of patient completed. No distress noted.
--- NOTE | 2021-04-10 21:57 | NUR ---
Admission Note Report Given to: QUINTON ANDERSON Transported by: X Wheelchair Stretcher Transported with: X Nurse Transporter X Patent IV X O2 Electro Mechanical Assembler Location: ICU X MS2
[2021-04-10 22:00] VITALS: BP 154/66
--- NOTE | 2021-04-10 22:45 | NUR ---
PT RECEIVED FROM ED TO ROOM 280. ARRIVES VIA STRETCHER ACCOMPANIED BY RN. PT AMBULATORY TO BED. GAIT UNSTEADY. PT DENIES PAIN AT THIS TIME. ORIENTED TO UNIT, ROOM, CALL MACIAS, LIGHTS, TV. ICE WATER PROVIDED. CALL MACIAS WITHIN REACH. AGREES TO CALL PRN.
--- NOTE | 2021-04-10 23:15 | NUR ---
PHYSICAL ASSESMENT COMPLETE. PT CURRENTLY DENIES PAIN OR DISCOMFORT. SCHEDULED MEDICATIONS AND PRN MEDICATION ADMINISTERED, SEE E-MAR. PT HAS SOB WITH EXERTION. PT HAS EVEN AND UNLABORED RESPIRATION ON 3 LITERS OF OXYGEN. PT DENIES ANY NEEDS AT THIS TIME. PLAN OF CARE REVIEWED, PT DENIES QUESTIONS, VERBALIZES UNDERSTANDING. ITEMS WITHIN REACH, BED LOCKED IN LOW POSITION W/ BEDRAILS UP X2. CALL MACIAS WITHIN REACH, AGREES TO CALL PRN.
[2021-04-10 23:25] LABS: URINE BILIRUBIN - DIPSTICK NEGATIVE (NEGATIVE); URINE BLOOD DIPSTICK MODERATE (NEGATIVE); URINE COLOR YELLOW; URINE GLUCOSE - DIPSTICK NEGATIVE (NEGATIVE); URINE KETONE NEGATIVE (NEGATIVE); URINE LEUK ESTERASE NEGATIVE (NEGATIVE); URINE PH 7.5 (4.5-8.0); URINE PROTEIN - DIPSTICK NEGATIVE (NEG-TRACE)
[2021-04-10 23:28] LABS: URINE NITRITE - DIPSTICK NEGATIVE (Negative)
[2021-04-10 23:49] LABS: URINE BACTERIA FEW hpf; URINE MUCUS FEW hpf (NONE-FEW); URINE SQUAMOUS EPITHELIAL CELL FEW EPI/hpf (0-FEW); URINE WBC 0-2 WBC/hpf (0-5)
--- NOTE | 2021-04-11 | NUR ---
PT LAYING IN BED WITH EYES CLOSED, APPEARS TO BE SLEEPING, APPEARS COMFORTABLE AND IN NO DISTRESS. RESPIRATIONS REGULAR AND UNLABORED. ITEMS REMAIN WITHIN REACH, CALL MACIAS REMAINS WITHIN REACH. BED REMAINS LOCKED AND IN LOW POSITION WITH BEDRAILS UP X2. WILL CONTINUE TO MONITOR.
[2021-04-11 05:01] VITALS: BP 115/55
[2021-04-11 06:02] LABS: HEMATOCRIT 31.1 % (37.0-47.0); HEMOGLOBIN 9.8 g/dl (12.0-16.0); MEAN CELL VOLUME 104.4 fL CALC (80.0-100.0); MEAN CORPUSCULAR HGB 32.9 pG CALC (26.0-32.0); MEAN CORPUSCULAR HGB CONC 31.5 g/dL CAL (32.0-36.0); RED BLOOD COUNT 2.98 mill/uL (4.20-5.60); RED CELL DISTRI WIDTH 11.9 % (11.5-15.5)
[2021-04-11 06:25] LABS: BUN 6 mg/dL (8-23); BUN/CREATININE RATIO 16 (12-20 (CALC)); CARBON DIOXIDE 37 mmol/l (22-30); CHLORIDE 95 mmol/l (95-108); CREATININE 0.4 mg/dL (0.5-1.0); GFR > 60 ML/MIN (>=60 (CALC)); GFR FOR AFR.AMER. > 60 ML/MIN (>=60 (CALC)); MAGNESIUM 2.1 mg/dL (1.6-2.3); SODIUM 137 mmol/l (137-146)
[2021-04-11 06:26] LABS: ANION GAP 10 (6-22 (CALC)); POTASSIUM 4.5 mmol/l (3.5-5.1)
--- NOTE | 2021-04-11 07:40 | NUR ---
PT C NAD. VSS. MASH TUB COOKER TO MONITOR.
[2021-04-11 08:14] VITALS: BP 127/74
--- NOTE | 2021-04-11 08:14 | NUR ---
PT IN BED WHEN ENTERED ROOM. PT IS ALERT AND ORIENTED. VITALS AND ASSESSMENT DONE. S1 AND S2 HEARD UPON ASCULTATION. LUNG SOUNDS CLEAR. BOWELS ACTIVE IN ALL 4 QUADRANTS. SKIN WARM AND DRY. PT ON 3L OF O2. CAMMODE AT BEDSIDE FOR SAFETY PURPOSES. PT COMPLAINING OF EXERTIONAL BREATHING.. PEDAL PULSES STRONG IV PATENT AND HEALTHY. PT NOT COMPLAINING OF PAIN AT THIS TIME. CALL LIGHT WITHIN REACH.
[2021-04-11] MEDS ORDERED: FLONASE AL50 MCG/AC1 EN (09:41)
[2021-04-11] MEDS ORDERED: IPRATROPIUM BR0.02 % INHW/SPAC (09:42)
[2021-04-11] MEDS ORDERED: PROVENTIL0.083 % IN (09:42)
[2021-04-11] MEDS ORDERED: PROAIR HFA108 MCG/AC PO (09:43)
[2021-04-11] MEDS ORDERED: BREO ELLIPTA 101 INH PO (09:43)
[2021-04-11] MEDS ORDERED: INCRUSE EL62.5 MCG/I PO (09:44)
[2021-04-11] MEDS ORDERED: REMERON7.5 MG PO (09:45)
[2021-04-11] MEDS ORDERED: GABAPENTIN300 M2 PO (09:47)
--- NOTE | 2021-04-11 12:00 | NUR ---
PT IN BED. NO DISTRESS NOTED. CALL LIGHT WITHIN REACH.
--- NOTE | 2021-04-11 12:02 | NUR ---
NO BRONCHODILATOR ADMIN AT THIS TIME PER PT EATING. NAD. VSS.
[2021-04-11 14:32] VITALS: BP 118/62
--- NOTE | 2021-04-11 15:12 | NUR ---
PT C NAD. VSS. NO CHANGES AT THIS TIME. SOAPSTONER TO MONITOR.
--- NOTE | 2021-04-11 16:00 | NUR ---
PT IN BED. NO DISTRESS NOTED. CALL LIGHT WITHIN REACH.
[2021-04-11 18:56] VITALS: BP 138/79
--- NOTE | 2021-04-11 20:00 | NUR ---
PT C/O OF SOB. RESPITORY THERAPY CONTACTED FOR A DUONEB THERAPY. PT AMBULATED TO [facility]. ALL PM MEDICATION PROVIDED.PHYSICAL ASSESMENT COMPLETE. PT DENIES ANY FURTHER NEEDS AT THIS TIME. PLAN OF CARE REVIEWED, PT DENIES QUESTIONS, VERBALIZES UNDERSTANDING. ITEMS WITHIN REACH, BED LOCKED IN LOW POSITION W/ BEDRAILS UP X2. CALL MACIAS WITHIN REACH, AGREES TO CALL PRN.
[2021-04-12] VITALS (7 sets, daily range): BP systolic 96–153; BP diastolic 63–75
--- NOTE | 2021-04-12 04:20 | NUR ---
PT RESTING IN BED, NO SIGNS OF DISTRESS NOTED, RESP EVEN AND UNLABORED. PT VOICES NO NEEDS OR COMPLAINTS AT THIS TIME. CALL LIGHT IN REACH, CONTINUE TO MONITOR.
--- NOTE | 2021-04-12 07:36 | NUR ---
PT A/O X3. PERRLA. GOOD HAND GRASPS. STRONG RADIAL, WEAK PEDAL PULSES. LUNGS DIMINISHED. NONPRODUCTIVE COUGH. O2 @3L ON PT; PT USES 3L AT HOME. BOWEL SOUNDS ACTIVE X4. LAST BM 04/11/21. #20 LAC SL. FLUSHED AND PATENT. NO C/O PAIN. SKIN INTACT. SAFETY PRECAUTIONS IN PLACE. CALL LIGHT IN REACH. BSC NEAR BED. WILL CONTINUE TO MONITOR.
--- NOTE | 2021-04-12 12:00 | NUR ---
PT SITTING UP EATING LUNCH. NO C/O PAIN. CALL LIGHT IN REACH. WILL CONTINUE TO MONITOR.
--- NOTE | 2021-04-12 16:32 | NUR ---
PT RESTING IN BED. O2 @3L ON PT. NO C/O PAIN. CALL LIGHT IN REACH. WILL CONTINUE TO MONITOR.
--- NOTE | 2021-04-12 20:00 | NUR ---
PHYSICAL ASSESMENT COMPLETE. PT CURRENTLY DENIES PAIN OR DISCOMFORT. PT STATING AT 93 ON 3 LITERS OF O2. SCHEDULED MEDICATIONS AND PRN MEDICATION ADMINISTERED, SEE E-MAR. PT DENIES ANY NEEDS AT THIS TIME. PLAN OF CARE REVIEWED, PT DENIES QUESTIONS, VERBALIZES UNDERSTANDING. ITEMS WITHIN REACH, BED LOCKED IN LOW POSITION W/ BEDRAILS UP X2. CALL MACIAS WITHIN REACH, AGREES TO CALL PRN.
[2021-04-13 04:00] VITALS: BP 96/58
--- NOTE | 2021-04-13 08:15 | NUR ---
PT A/O X3. PERRLA. O2 @ 3L ON PT. LUNGS CLEAR UPPER, DIMINISHED LOWER. NONPRODUCTIVE COUGH NOTED. BOWEL SOUNDS ACTIVE X4. LAST BM 04/11/21. ABDOMEN SOFT. #20 LAC SL. FLUSHED AND PATENT. STRONG HAND GRASPS. STRONG RADIAL AND PEDAL PULSES. SKIN INTACT. DENIES ANY PAIN. SAFETY PRECAUTIONS IN PLACE. CALL LIGHT IN REACH. WILL CONTINUE TO MONITOR.
[2021-04-13 09:36] VITALS: BP 124/63
[2021-04-13 09:45] VITALS: BP 124/63
--- NOTE | 2021-04-13 12:15 | NUR ---
PT WATCHING TELEVISION. NO C/O PAIN. O2 @3L ON PT. CALL LIGHT IN REACH. WILL CONTINUE TO MONITOR.
[2021-04-13] MEDS ORDERED: ZITHROMAX250 MG PO (13:00)
[2021-04-13] MEDS ORDERED: PREDNISONE10 MG PO (13:00)
--- NOTE | 2021-04-13 13:00 | NUR ---
#20 LAC IV REMOVED DUE TO PT BEING D/C. CATHETER INTACT.
--- NOTE | 2021-04-13 14:25 | NUR ---
D/C INSTRUCTIONS DISCUSSED W/ PT. PT VERBALIZES UNDERSTANDING. WAITING FOR HER DAUGHTER TO PICK HER UP.
--- NOTE | 2021-04-13 15:12 | NUR ---
PT WHEELED DOWNSTAIRS VIA WC BY MONICA GRIDER IN STABLE CONDITION.
== END 2021-04-13 15:12 | disposition home or self-care (01) ==
LOC: ED 17:02 → MS2 20:16
PROVIDERS: Family Medicine; Nurse Practitioner; ADMIT Internal Medicine; ATTEND Internal Medicine
DX: J44.1 Chronic obstructive pulmonary disease with (acute) exacerbation (principal); J96.20 Acute and chronic respiratory failure, unspecified whether with hypoxia or hypercapnia; R53.1 Weakness; I10 Essential (primary) hypertension; E03.9 Hypothyroidism, unspecified; F41.9 Anxiety disorder, unspecified; F10.10 Alcohol abuse, uncomplicated; Z99.81 Dependence on supplemental oxygen; Z20.822 Contact with and (suspected) exposure to COVID-19
CPT/HCPCS: G0378; J1650

== ENCOUNTER 2022-08-25 07:40 | Inpatient (IN) | payer MEDICARE, MEDICAID ==
[2022-08-25] VITALS (17 sets, daily range): BP systolic 109–163; BP diastolic 48–98
[~2022-08-25] VITALS: Ht 157.5 cm; Wt 54.0 kg
[~2022-08-25 07:40] MED LIST changes: +BREO ELLIPTA 101 INH PO; +FLONASE AL50 MCG/AC1 EN; +GABAPENTIN300 M2 PO; +INCRUSE EL62.5 MCG/I PO; +IPRATROPIUM BR0.02 % INHW/SPAC; +PROAIR HFA108 MCG/AC PO; +PROVENTIL0.083 % IN; +REMERON7.5 MG PO
--- NOTE | 2022-08-25 07:45 | NUR ---
PATIENT ESCORTED TO ROOM VIA WHEELCHAIR. PROVIDER NOTIFIED OF PATIENT STATUS.
[2022-08-25] MEDS ORDERED: EUTHYROX75 MCG (08:11)
[2022-08-25] MEDS ORDERED: DALIRESP500 MCG PO (08:11)
[2022-08-25] MEDS ORDERED: SYMBICORT 80-4.5MCG (08:11)
[2022-08-25 08:16] LABS: BASO% 0.2 % (0-3); EOS% 0.5 % (0-8); HEMATOCRIT 36.2 % (37.0-47.0); IMMATURE GRANULOCYTES 0.3 % (0.0-5.0); LYMPH% 8.6 % (15-41); MEAN CELL VOLUME 100.6 fL CALC (80.0-100.0); MEAN CORPUSCULAR HGB 33.1 pG CALC (26.0-32.0); MEAN CORPUSCULAR HGB CONC 32.9 g/dL CAL (32.0-36.0); MONO% 9.3 % (2-13); NEUT# 14.8 thou/uL (2.00-7.15); NEUT% 81.1 % (42-76); RED BLOOD COUNT 3.6 mill/uL (4.20-5.60); RED CELL DISTRI WIDTH 12.8 % (11.5-15.5)
[2022-08-25 08:30] LABS: HEMOGLOBIN 11.9 g/dl (12.0-16.0)
[2022-08-25 08:42] LABS: ALKALINE PHOSPHATASE 86 u/l (38-126); ANION GAP 12 (6-22 (CALC)); BUN 10 mg/dL (8-23); BUN/CREATININE RATIO 24 (12-20 (CALC)); CARBON DIOXIDE 32 mmol/l (22-30); CHLORIDE 95 mmol/l (95-108); CREATININE 0.4 mg/dL (0.5-1.0); GFR FOR AFR.AMER. > 60 ML/MIN (>=60 (CALC)); GFR OTHER RACES > 60 ML/MIN (>=60 (CALC)); POTASSIUM 3.6 mmol/l (3.5-5.1); SGOT/AST 30 u/l (9-36); SODIUM 136 mmol/l (137-146); TOTAL PROTEIN 7.6 g/dL (6.3-8.2)
[2022-08-25 08:46] LABS: ALBUMIN 4.6 g/dL (3.2-5.0); BILIRUBIN, TOTAL 0.6 mg/dL (0.0-1.4)
--- NOTE | 2022-08-25 09:00 | NUR ---
Reassessment of patient completed. No distress noted.
--- NOTE | 2022-08-25 10:24 | NUR ---
Reassessment of patient completed. No distress noted. NAD AT THIS TIME. AWAITING A ROOM ASSIGNMENT.
--- NOTE | 2022-08-25 11:34 | NUR ---
PT TRANSPORTED TO MED/SURG ROOM 281 AND BEDSIDE REPORT WAS GIVEN TO YAMILA. PT WAS TRANSPORTED WITH 2 LITERS O2 NASAL CANNULA AND A PATENT 20 LAC IV WELL ON TELEMETRY. NAD AT TIME OF HAND-OFF.
[2022-08-25] MEDS ORDERED: SYMBICORT1 AE1 IN (15:09)
[2022-08-25] MEDS ORDERED: INCRUSE EL62.5 MCG/I IN (15:11)
--- NOTE | 2022-08-25 19:00 | NUR ---
BEDSIDE SHIFT REPORT COMPLETE. PATIENT RESTING IN BED WATCHING TV. NO DISTRESS NOTED, DENIES PAIN. CALL LIGHT WITHIN REACH.
--- NOTE | 2022-08-25 19:50 | NUR ---
PATIENT ALERT AND ORIENTED X4. ASSESSMENT COMPLETE. NO DISTRESS NOTED AT THIS TIME. 2L/NC SATURATION 95%, HAVE SHORTNESS OF BREATH WITH EXERTION. DENIES PAIN AT THIS TIME. CALL LIGHT WITHIN REACH, INSTRUCTED TO CALL FOR ASSISTANCE.
[2022-08-26] VITALS (7 sets, daily range): BP systolic 120–152; BP diastolic 54–79
--- NOTE | 2022-08-26 00:45 | NUR ---
PATIENT RESTING QUIETLY. VSS. NO C/O PAIN AT THIS TIME, NO DISTRESS NOTED. CALL LIGHT WITHIN REACH.
--- NOTE | 2022-08-26 04:39 | NUR ---
PATIENT LYING IN BED PLAYING GAMES ON HER PHONE. VSS, NO DISTRESS NOTED. SATURATION 96% ON 2L/NC. DENIES PAIN AT THIS TIME. CALL LIGHT WITHIN REACH.
[2022-08-26 05:40] LABS: BASO% 0.2 % (0-3); HEMOGLOBIN 10.8 g/dl (12.0-16.0); IMMATURE GRANULOCYTES 0.8 % (0.0-5.0); LYMPH% 5.4 % (15-41); MEAN CELL VOLUME 100.6 fL CALC (80.0-100.0); MEAN CORPUSCULAR HGB 32.9 pG CALC (26.0-32.0); MEAN CORPUSCULAR HGB CONC 32.7 g/dL CAL (32.0-36.0); MONO% 3.5 % (2-13); NEUT# 13.21 thou/uL (2.00-7.15); NEUT% 90.1 % (42-76); RED BLOOD COUNT 3.28 mill/uL (4.20-5.60); RED CELL DISTRI WIDTH 12.6 % (11.5-15.5)
[2022-08-26 06:09] LABS: ALBUMIN 3.8 g/dL (3.2-5.0); ALKALINE PHOSPHATASE 84 u/l (38-126); ANION GAP 8 (6-22 (CALC)); BILIRUBIN, TOTAL 0.2 mg/dL (0.0-1.4); BUN 10 mg/dL (8-23); BUN/CREATININE RATIO 27 (12-20 (CALC)); CARBON DIOXIDE 31 mmol/l (22-30); CHLORIDE 103 mmol/l (95-108); CREATININE 0.4 mg/dL (0.5-1.0); GFR FOR AFR.AMER. > 60 ML/MIN (>=60 (CALC)); GFR OTHER RACES > 60 ML/MIN (>=60 (CALC)); MAGNESIUM 2.7 mg/dL (1.6-2.3); SGOT/AST 25 u/l (9-36); SODIUM 138 mmol/l (137-146); TOTAL PROTEIN 6.7 g/dL (6.3-8.2)
--- NOTE | 2022-08-26 08:59 | NUR ---
pt on 3l NC sat 98%
--- NOTE | 2022-08-26 15:29 | NUR ---
PT ASSESSED. VS STABLE. NO C/O CP OR SOB W/O EXERTION. BED IN LOW, LOCKED POSITION. CALL MACIAS WITHIN REACH. WILL CONTINUE TO MONITOR.
--- NOTE | 2022-08-26 20:15 | NUR ---
PT LAYING IN BED WITH NASAL CANNULA IN PLACE. PT IS A/OX4 WITH CLEAR SPEACH. PT ASSESSMENT COMPLETED AND IV SITE HEALTHY WITH NORMAL SALINE RUNNING. PT DENIES ANY PAIN AT THIS TIME BUT REQUEST BREATHING TREATMENT. RESPIRATORY NOTIFIED. CALL LIGHT WITHIN REACH AND SAFETY PRECAUTIONS IN PLACE.
[2022-08-27 00:07] VITALS: BP 113/62
--- NOTE | 2022-08-27 00:46 | NUR ---
PT IN BED WITH NASAL CANNULA IN PLACE. PT SHOWS NO S/S OF DISTRESS. CALL LIGHT WITHIN REACH AND SAFETY PRECAUTIONS IN PLACE.
[2022-08-27 04:42] VITALS: BP 126/61
--- NOTE | 2022-08-27 04:46 | NUR ---
PT LAYING IN BED WITH NASAL CANNULA IN PLACE. NO S/S OF DISTRESS OR DISCOMFORT. CALL LIGHT WITHIN REACH AND SAFETY PRECAUTIONS IN PLACES.
[2022-08-27 05:16] LABS: ALBUMIN 3.9 g/dL (3.2-5.0); ALKALINE PHOSPHATASE 79 u/l (38-126); ANION GAP 8 (6-22 (CALC)); BUN 13 mg/dL (8-23); BUN/CREATININE RATIO 27 (12-20 (CALC)); CARBON DIOXIDE 32 mmol/l (22-30); CHLORIDE 105 mmol/l (95-108); CREATININE 0.5 mg/dL (0.5-1.0); GFR FOR AFR.AMER. > 60 ML/MIN (>=60 (CALC)); GFR OTHER RACES > 60 ML/MIN (>=60 (CALC)); POTASSIUM 3.8 mmol/l (3.5-5.1); SGOT/AST 35 u/l (9-36); SODIUM 141 mmol/l (137-146); TOTAL PROTEIN 6.4 g/dL (6.3-8.2)
[2022-08-27 05:18] LABS: BASO% 0.1 % (0-3); HEMATOCRIT 31.6 % (37.0-47.0); HEMOGLOBIN 10.5 g/dl (12.0-16.0); IMMATURE GRANULOCYTES 0.6 % (0.0-5.0); LYMPH% 4.6 % (15-41); MEAN CELL VOLUME 101.6 fL CALC (80.0-100.0); MEAN CORPUSCULAR HGB 33.8 pG CALC (26.0-32.0); MEAN CORPUSCULAR HGB CONC 33.2 g/dL CAL (32.0-36.0); MONO% 3.7 % (2-13); NEUT# 14.93 thou/uL (2.00-7.15); RED BLOOD COUNT 3.11 mill/uL (4.20-5.60); RED CELL DISTRI WIDTH 12.8 % (11.5-15.5)
[2022-08-27 05:23] LABS: BILIRUBIN, TOTAL 0.1 mg/dL (0.0-1.4)
[2022-08-27 07:24] VITALS: BP 144/77
[2022-08-27 11:03] VITALS: BP 154/76
[2022-08-27] MEDS ORDERED: TAMIFLU SUSP 6MG/ML PO (13:39)
[2022-08-27] MEDS ORDERED: ZITHROMAX250 MG PO (13:41)
[2022-08-27] MEDS ORDERED: NEBULIZER (13:43)
[2022-08-27 15:54] VITALS: BP 147/78
== END 2022-08-27 16:44 | disposition home health service (06) | DRG 871 ==
LOC: ED 07:40 → ED-I 09:10 → ED 09:44 → MS2 09:45
PROVIDERS: Family Medicine; Nurse Practitioner Family; ADMIT Internal Medicine; ATTEND Internal Medicine
DX: A41.9 Sepsis, unspecified organism (principal); J10.00 Influenza due to other identified influenza virus with unspecified type of pneumonia; J44.0 Chronic obstructive pulmonary disease with (acute) lower respiratory infection; J96.11 Chronic respiratory failure with hypoxia; I10 Essential (primary) hypertension; E03.9 Hypothyroidism, unspecified; Z95.0 Presence of cardiac pacemaker; Z99.81 Dependence on supplemental oxygen; Z87.891 Personal history of nicotine dependence; Z20.822 Contact with and (suspected) exposure to COVID-19
CPT/HCPCS: J1650

== ENCOUNTER 2023-08-31 11:44 | Inpatient (IN) | payer MEDICARE, MEDICAID ==
[2023-08-31] VITALS (17 sets, daily range): BP systolic 109–145; BP diastolic 40–81
[~2023-08-31] VITALS: Ht 157.5 cm; Wt 62.6 kg
[~2023-08-31 11:44] MED LIST changes: +EUTHYROX75 MCG; +INCRUSE EL62.5 MCG/I IN; +NEBULIZER; +SYMBICORT 80-4.5MCG; +SYMBICORT1 AE1 IN; +TAMIFLU SUSP 6MG/ML PO
--- NOTE | 2023-08-31 11:50 | NUR ---
PT TO ROOM 8 VIA WHEELCHAIR.
--- NOTE | 2023-08-31 12:29 | NUR ---
RT AT BEDSIDE.
[2023-08-31 12:35] LABS: BASO% 0.4 % (0-3); EOS% 0.5 % (0-8); HEMATOCRIT 37.3 % (37.0-47.0); HEMOGLOBIN 11.7 g/dl (12.0-16.0); IMMATURE GRANULOCYTES 0.2 % (0.0-5.0); LYMPH% 21.7 % (15-41); MEAN CELL VOLUME 101.4 fL CALC (80.0-100.0); MEAN CORPUSCULAR HGB 31.8 pG CALC (26.0-32.0); MEAN CORPUSCULAR HGB CONC 31.4 g/dL CAL (32.0-36.0); MONO% 15.2 % (2-13); NEUT# 3.54 thou/uL (2.00-7.15); RED BLOOD COUNT 3.68 mill/uL (4.20-5.60); RED CELL DISTRI WIDTH 12.3 % (11.5-15.5)
[2023-08-31 12:56] LABS: ALBUMIN 4.5 g/dL (3.2-5.0); ALKALINE PHOSPHATASE 87 u/l (38-126); ANION GAP 12 (6-22 (CALC)); BUN 12 mg/dL (8-23); BUN/CREATININE RATIO 26 (12-20 (CALC)); CARBON DIOXIDE 29 mmol/l (22-30); CHLORIDE 99 mmol/l (95-108); CREATININE 0.5 mg/dL (0.5-1.0); GFR FOR AFR.AMER. > 60 ML/MIN (>=60 (CALC)); GFR OTHER RACES > 60 ML/MIN (>=60 (CALC)); POTASSIUM 3.4 mmol/l (3.5-5.1); SGOT/AST 43 u/l (9-36); SODIUM 136 mmol/l (137-146); TOTAL PROTEIN 7.4 g/dL (6.3-8.2)
[2023-08-31 12:57] LABS: BILIRUBIN, TOTAL 0.4 mg/dL (0.02-1.3)
--- NOTE | 2023-08-31 13:01 | NUR ---
IV ESTABLISHED IN RAC X1 ATTEMPT. PT TOLERATED WELL. MEDICATED ORDERED AT THIS TIME. NO APPARENT DISTRESS NOTED.
--- NOTE | 2023-08-31 14:50 | NUR ---
PT FAMILY REPORTS TAKING PT TO BATHROOM AND PT BECAME EXTREMELY SOB. PT BACK ON STRETCHER AT THIS TIME. ENCOURAGED DEEP BREATHING, SATS 90% ON 2L/M VIA NC.
--- NOTE | 2023-08-31 15:34 | NUR ---
NURSE TO NURSE REPORT CALLED TO WILLIAM ANDERSON ON MS.
--- NOTE | 2023-08-31 15:51 | NUR ---
PT TRANSFERED TO ROOM 262 WITH FAMILY AT BEDSIDE.
--- NOTE | 2023-08-31 15:52 | NUR ---
PT BROUGHT TO ROOM 262 BY MONICA JUÁREZ. PT IS AOx4, AMBULATORY WITH ASSIST, SOB ON EXERTION. VSS. PT ACCOMPANIED BY DAUGHTER. STATES SHE IS STARTING TO BRING UP SPUTUM AFTER NEB TREATMENT IN ED.
--- NOTE | 2023-09-01 00:04 | NUR ---
PT ON TELE. ALERT AND ORIENTED X 3. ON TELE. O2 ON VIA NC AT 2 LITERS. PT STATES SHE GETS SOB ON EXERTION. PUREWICK PLACED. ON TELE PACED RYTHM. SAFETY PRECAUTIONS MAINTAINED . BED IS LOCKED TOP SIDE RAILS UP. CALL LIGHT IN REACH
--- NOTE | 2023-09-01 03:25 | NUR ---
PT SLEEPING WELL. RESPIRATIONS ARE EVEN AND UNLABORED. ON TELE. VSS. SAFETY PRECAUTIONS MAINTAINED CALL LIGHT IN REACH
[2023-09-01 04:18] VITALS: BP 116/57
[2023-09-01 06:53] VITALS: BP 117/55
[2023-09-01 06:56] LABS: ALBUMIN 4.5 g/dL (3.2-5.0); ALKALINE PHOSPHATASE 100 u/l (38-126); ANION GAP 15 (6-22 (CALC)); BILIRUBIN, TOTAL 0.4 mg/dL (0.02-1.3); BUN 12 mg/dL (8-23); BUN/CREATININE RATIO 28 (12-20 (CALC)); CARBON DIOXIDE 27 mmol/l (22-30); CHLORIDE 102 mmol/l (95-108); CREATININE 0.4 mg/dL (0.5-1.0); GFR FOR AFR.AMER. > 60 ML/MIN (>=60 (CALC)); GFR OTHER RACES > 60 ML/MIN (>=60 (CALC)); MAGNESIUM 2.3 mg/dL (1.6-2.3); POTASSIUM 3.5 mmol/l (3.5-5.1); SGOT/AST 42 u/l (9-36); SODIUM 141 mmol/l (137-146); TOTAL PROTEIN 7.6 g/dL (6.3-8.2)
[2023-09-01 06:58] LABS: BASO% 0.2 % (0-3); HEMATOCRIT 37.8 % (37.0-47.0); HEMOGLOBIN 12.3 g/dl (12.0-16.0); IMMATURE GRANULOCYTES 0.2 % (0.0-5.0); MEAN CELL VOLUME 99.7 fL CALC (80.0-100.0); MEAN CORPUSCULAR HGB 32.5 pG CALC (26.0-32.0); MEAN CORPUSCULAR HGB CONC 32.5 g/dL CAL (32.0-36.0); NEUT# 3.42 thou/uL (2.00-7.15); NEUT% 77.6 % (42-76); RED BLOOD COUNT 3.79 mill/uL (4.20-5.60); RED CELL DISTRI WIDTH 12.2 % (11.5-15.5)
--- NOTE | 2023-09-01 08:00 | NUR ---
PT SITTING UP ON EDGE OF BED EATING BREAKFAST. PT IS ALERT AND OREINTED X 3, PT HAS NO C/O PAIN AT THIS TIME. PT TELE ON WITH ALL LEADS ATTACHED. PT LUNGS DIMINISHED THROUGOUT, BREATHING IS NON LABORED; PT HAS 02 @ 2 LITERS ON VIA NC. PT ABD IS SOFT WITH BS ACTIVE. PT HAS PUREWICK IN PLACE WITH CLEAR, YELLOW URINE DRAINING. PT HAS CALL LIGHT WITHIN REACH AND SAFETY MEASURES IN PLACE AT THIS TIME.
[2023-09-01 10:48] LABS: URINE BILIRUBIN - DIPSTICK Negative (NEGATIVE); URINE BLOOD DIPSTICK Small (NEGATIVE); URINE GLUCOSE - DIPSTICK Negative (NEGATIVE); URINE KETONE 15 mg/dL (NEGATIVE); URINE LEUK ESTERASE Trace (NEGATIVE); URINE NITRITE - DIPSTICK Negative (Negative); URINE PH 6.5 (4.5-8.0); URINE PROTEIN - DIPSTICK Negative (NEG-TRACE); URINE SPECIFIC GRAVITY 1.015; URINE UROBILINOGEN - DIPSTICK 0.2 E.U./dL (0.2)
[2023-09-01 10:49] LABS: URINE COLOR Yellow
[2023-09-01 10:58] VITALS: BP 126/41
[2023-09-01 11:19] LABS: URINE RBC 0-2 RBC/hpf (0-5); URINE WBC 0-2 WBC/hpf (0-5)
[2023-09-01 11:20] LABS: URINE BACTERIA RARE hpf; URINE HYALINE CAST FEW lpf (NONE-RARE); URINE SQUAMOUS EPITHELIAL CELL FEW EPI/hpf (0-FEW)
--- NOTE | 2023-09-01 12:00 | NUR ---
PT WITH HOB UP EATING LUNCH. PT HAS NO C/O PAIN AT THIS TIME. PT HAS NO CHANGE IN STATUS AT THIS TIME. PT HAS CALL LIGHT WITHIN REACH AND ALL SAFETY MEASURES IN PLACE.
[2023-09-01 15:23] VITALS: BP 106/46
--- NOTE | 2023-09-01 16:00 | NUR ---
PT IN BED WATCHING TV. PT HAS NO C/O PAIN AT THIS TIME. PT HAS CALL LIGHT WITHIN REACH AND SAFETY MEASURES IN PLACE.
[2023-09-01 19:11] VITALS: BP 110/41
--- NOTE | 2023-09-01 22:43 | NUR ---
shift report recived. pt lying in bed with hob elevated, alert and oreinted x [address]. remains on 02 via nc continuous. pt states she gets sob with slight exertion and expectorating sputum. new IV inserted right wrist. received solumedrol IV. using bedside commode. jourdan diet and fluids well. safety precautions maintained. top bed rails up. bed is locked. call light in reach
[2023-09-02] VITALS (7 sets, daily range): BP systolic 104–133; BP diastolic 50–86
--- NOTE | 2023-09-02 04:29 | NUR ---
PT SLEPT WELL. REMAINS ON 02 VIA NC AT 2 LITERS. RESPIRATIONS ARE EVN/NON LABORED. SAFETY PRECAUTIONS MAINTAINED. CALL LIGHT IN REACH
[2023-09-02 05:45] LABS: BASO% 0.1 % (0-3); HEMATOCRIT 35.7 % (37.0-47.0); HEMOGLOBIN 11.7 g/dl (12.0-16.0); IMMATURE GRANULOCYTES 0.5 % (0.0-5.0); LYMPH% 6.9 % (15-41); MEAN CELL VOLUME 99.7 fL CALC (80.0-100.0); MEAN CORPUSCULAR HGB 32.7 pG CALC (26.0-32.0); MEAN CORPUSCULAR HGB CONC 32.8 g/dL CAL (32.0-36.0); MONO% 5.2 % (2-13); NEUT# 10.43 thou/uL (2.00-7.15); NEUT% 87.3 % (42-76); RED BLOOD COUNT 3.58 mill/uL (4.20-5.60); RED CELL DISTRI WIDTH 12.4 % (11.5-15.5)
[2023-09-02 06:17] LABS: ALBUMIN 4.1 g/dL (3.2-5.0); ALKALINE PHOSPHATASE 75 u/l (38-126); ANION GAP 15 (6-22 (CALC)); BILIRUBIN, TOTAL 0.3 mg/dL (0.02-1.3); BUN 17 mg/dL (8-23); BUN/CREATININE RATIO 42 (12-20 (CALC)); CARBON DIOXIDE 26 mmol/l (22-30); CHLORIDE 104 mmol/l (95-108); CREATININE 0.4 mg/dL (0.5-1.0); GFR FOR AFR.AMER. > 60 ML/MIN (>=60 (CALC)); GFR OTHER RACES > 60 ML/MIN (>=60 (CALC)); MAGNESIUM 2.5 mg/dL (1.6-2.3); POTASSIUM 4.1 mmol/l (3.5-5.1); SGOT/AST 44 u/l (9-36); SODIUM 141 mmol/l (137-146); TOTAL PROTEIN 6.6 g/dL (6.3-8.2)
--- NOTE | 2023-09-02 08:00 | NUR ---
PT SITTING UP ON SIDE OF BED EATING BREAKFAST. PT IS ALERT AND OREINTED X3, PT HAS NO C/O PAIN AT THIS TIME. PT HAS TELE ON WITH ALL LEADS ATTACHED. PT LUNGS WITH CRACKLES IN UPPER LOBED ABD DIMNISHED IN LOWER LOBES; BREATHING IS LABORED; PT CONTINUES TO WEAR 02 @ 2LITERS VIA NC; O2 SATS 2 98%. PT ABD IS SOFT AND BS ACTIVE. PT AMBULATES TO BEDSIDE COMMODE FOR TOILETING NEEDS. PT IV TO RIGHT WRIST CLEAN AND INTACT. PT HAS CALL LIGHT WITHIN REACH AND SAFETY MEASURES IN PLACE AT THIS TIME.
--- NOTE | 2023-09-02 12:05 | NUR ---
PT DOWN TO RADIOLOGY FOR ECHO, BY VOLUNTEER. PT HAS O2 @ 2 LITERS VIA NC ON VIA PORTABLE O2 TANK. SATS @ 98 %.
--- NOTE | 2023-09-02 16:00 | NUR ---
PT RESTING IN BED, PT HAS NO C/O PAIN AT THIS TIME. PT CONTINUES TO WEAT O2 @ 2 LITERS; HAVING SOB ON EXERTION. PT HAS CALL LIGHT WITHIN REACH AND SAFETY MEASURES IN PLACE AT THIS TIME.
--- NOTE | 2023-09-02 20:00 | NUR ---
RECEIVED REPORT FROM NURSE ISIDRO, PATIENT ALERT ORIENTED, DAUGTER IN ROOM PATINET ON O2 @ 3LPM VIA NC, BREATHING SHALLOW, EXERTIONAL DYSPNEA NOTED, PATINET PRODUCTIVE COUGH YELLOW IN COLOR, DENIES PAIN AT THIS TIME, PATIENT IV LEAKING REMOVED CATHETER INTACT, WILL INSERT NEW IV, CALL LIGHT IN REACH.
--- NOTE | 2023-09-02 20:42 | NUR ---
NEW IV REINSERTED 22 LEFT WRIST
--- NOTE | 2023-09-03 | NUR ---
PATIENT RESTING IN BED, NOT IN DISTRESS, REMAINS ON O2 @ 3LPM VIA NC DUE SOLUMEDROL GIVEN, CALL LIGHT IN REACH.
[2023-09-03 03:46] VITALS: BP 177/84
--- NOTE | 2023-09-03 04:18 | NUR ---
PATIENT RESTING IN BED,REMAINS ON O2 @ 3LPM VIA NC, NOT IN DISTRESS, CALL LIGHT IN REACH.
[2023-09-03 05:54] LABS: BASO% 0.1 % (0-3); HEMOGLOBIN 11.2 g/dl (12.0-16.0); IMMATURE GRANULOCYTES 0.9 % (0.0-5.0); LYMPH% 6.4 % (15-41); MEAN CELL VOLUME 100.6 fL CALC (80.0-100.0); MEAN CORPUSCULAR HGB 32.2 pG CALC (26.0-32.0); MONO% 4.9 % (2-13); NEUT# 9.4 thou/uL (2.00-7.15); NEUT% 87.7 % (42-76); RED BLOOD COUNT 3.48 mill/uL (4.20-5.60); RED CELL DISTRI WIDTH 12.2 % (11.5-15.5)
[2023-09-03 06:10] VITALS: BP 141/60
[2023-09-03 06:10] LABS: ALBUMIN 3.9 g/dL (3.2-5.0); ALKALINE PHOSPHATASE 77 u/l (38-126); ANION GAP 10 (6-22 (CALC)); BILIRUBIN, TOTAL 0.3 mg/dL (0.02-1.3); BUN 18 mg/dL (8-23); BUN/CREATININE RATIO 33 (12-20 (CALC)); CARBON DIOXIDE 31 mmol/l (22-30); CHLORIDE 103 mmol/l (95-108); CREATININE 0.5 mg/dL (0.5-1.0); GFR FOR AFR.AMER. > 60 ML/MIN (>=60 (CALC)); GFR OTHER RACES > 60 ML/MIN (>=60 (CALC)); MAGNESIUM 2.5 mg/dL (1.6-2.3); POTASSIUM 3.8 mmol/l (3.5-5.1); SGOT/AST 37 u/l (9-36); SODIUM 141 mmol/l (137-146); TOTAL PROTEIN 6.3 g/dL (6.3-8.2)
--- NOTE | 2023-09-03 08:00 | NUR ---
PT IN BED WITH HOB UP, PT IS ALERT AND ORIENTED X 3. PT HAS NO C/O PAIN AT THIS TIME. PT TELE ON WITH ALL LEADS ATTACHED. PT IV SITE TO TO LEFT WRIST CLEAN AND INTACT, SL. PT LUNGS COARSE IN UPPER LOBES AND DIMNISHED IN LOWER LOBES,BREATHING IS LABORED, PER PT BECAUSE SHE WAS JUST UP TO BATHROOM; CONTINUES TO WEAR 02 @ 2 LITERS VIA NC, SATS @ 98 %. ABD IS SOFT WITH ACTIVE BS. PT HAS BEDSIDE COMMODE FOR TOIELTING NEEDS. PT HAS CALL LIGHT WITHIN REACH AND SAFETY MEASURES IN PLACE AT THIS TIME.
--- NOTE | 2023-09-03 12:00 | NUR ---
PT IN BED WITH HOB UP. PT HAS NO C/O PAIN AT THIS TIME. PT CONTINUES ON 02 @ 3 LITERS, BREATHING NON LABORED AT THIS TIME. PT HAS CALL LIGHT WITHIN REACH AND SAFETY MEASURES IN PLACE.
--- NOTE | 2023-09-03 16:00 | NUR ---
PT IN BED RESTING, PT HAS NO C/O PAIN AT THIS TIME. PT HAS IV ANTIBIOTICS INFUSING VIA IV ORDERED. PT HAS CALL LIGHT WITHIN REACH AND SAFETY MEASURES IN PLACE AT THIS TIME.
[2023-09-03 16:03] VITALS: BP 142/74
[2023-09-03 18:48] VITALS: BP 146/61
--- NOTE | 2023-09-03 19:45 | NUR ---
ASSESSMENT IS COMPLTED: IV SITE IS FREE FROM REDNESS OR EDEMA. TELE MONITOR IN PLACE. BREATH SOUNDS ARE RHONCI, AND DIMINISHED. HR IS IRREGULAR, PULSES ARE STRONG X4,ABD IS SOFT WITH ACTIVE. BS. PT GETS SOB ON EXERTION, O2 @ 3LITERS WITH NC.
--- NOTE | 2023-09-03 20:30 | NUR ---
INQUIRED ABOUT HAVING SOMETHING FOR ANXIETY, SPOKE WITH DR GALAVIZ STATED" NOT WANT TO CRASH HER SO NOTHING AT THIS TIME"
[2023-09-04] VITALS (7 sets, daily range): BP systolic 101–144; BP diastolic 31–66
--- NOTE | 2023-09-04 | NUR ---
PT IS RESTING WITHOUT ANY ISSUES NOTED. CONTINUE TO OSBERVE AND MONITOR.
--- NOTE | 2023-09-04 04:00 | NUR ---
pt has been resting in bed with no distress noted. iv site and tele monitor in place. continue to observe and monitor.
[2023-09-04 06:26] LABS: BASO% 0.1 % (0-3); HEMOGLOBIN 11.4 g/dl (12.0-16.0); IMMATURE GRANULOCYTES 3.3 % (0.0-5.0); MEAN CELL VOLUME 100.3 fL CALC (80.0-100.0); MEAN CORPUSCULAR HGB 32.7 pG CALC (26.0-32.0); MEAN CORPUSCULAR HGB CONC 32.6 g/dL CAL (32.0-36.0); MONO% 5.5 % (2-13); NEUT# 8.03 thou/uL (2.00-7.15); NEUT% 82.1 % (42-76); RED BLOOD COUNT 3.49 mill/uL (4.20-5.60); RED CELL DISTRI WIDTH 12.3 % (11.5-15.5)
[2023-09-04 06:36] LABS: BUN 17 mg/dL (8-23); BUN/CREATININE RATIO 31 (12-20 (CALC)); CARBON DIOXIDE 33 mmol/l (22-30); CHLORIDE 103 mmol/l (95-108); CREATININE 0.6 mg/dL (0.5-1.0); GFR FOR AFR.AMER. > 60 ML/MIN (>=60 (CALC)); GFR OTHER RACES > 60 ML/MIN (>=60 (CALC))
[2023-09-04 06:38] LABS: ALBUMIN 3.7 g/dL (3.2-5.0); ALKALINE PHOSPHATASE 79 u/l (38-126); BILIRUBIN, TOTAL 0.3 mg/dL (0.02-1.3); MAGNESIUM 2.6 mg/dL (1.6-2.3); SGOT/AST 37 u/l (9-36); TOTAL PROTEIN 6.1 g/dL (6.3-8.2)
[2023-09-04 07:29] LABS: ANION GAP 8 (6-22 (CALC)); POTASSIUM 4.2 mmol/l (3.5-5.1); SODIUM 140 mmol/l (137-146)
--- NOTE | 2023-09-04 08:00 | NUR ---
RECEIVED REPORT FROM NIGHTSHIFT NURSE. PT NOTED SITTING UP ON SIDE OF BED, EATING BREAKFAST AT THIS TIME. PT IS A/OX3, NASAL CANNULA IN PLACE ON 2L. TELE MONITOR IN PLACE. PT DENIES ANY PAIN. EDUCATED PT ON PLAN OF CARE AND MED SCHEDULE. CALL LIGHT WITHIN REACH AND SAFETY PRECAUTIONS IN PLACE.
--- NOTE | 2023-09-04 20:45 | NUR ---
PT RESTING IN BED, NO SIGNS OF DISTRESS NOTED, RESP EVEN AND UNLABORED. PT ALERT AND ORIENTED X3, NO EDEMA, SKIN IS FRAIL NOTED BRUISING TO EXTREMITIES, DENIES ANY PAIN. DISCUSSED POC, AND BREATHING TECHNIQUES, NOTED PT HAS EXERTIONAL SOB, 02 2L NC, DEPENDENT AT HOME. PT STATES SHE HAS NOT HAD A BM IN DAYS. PT MEDICATED WITH MOM, ENCOURAGED PO FLUIDS. ASSESSMENT REVIEW COMPLETED, CALL LIGHT IN REACH, POC ONGOING.
--- NOTE | 2023-09-04 23:50 | NUR ---
PT RESTING IN BED WITH EYES CLOSED, EASILY AROUSED TO VERBAL STIMULI. DISCUSSED IV SOLUMEDROL PT AGREES. PT DENIES ANY NEEDS OR COMPLAINTS AT THIS TIME. CALL LIGHT IN REACH, POC ONGOING.
[2023-09-05] VITALS (7 sets, daily range): BP systolic 132–159; BP diastolic 59–83
--- NOTE | 2023-09-05 02:34 | NUR ---
PT CALLED FOR ASSISTANCE TO BSC, ONCE BACK ON BED, PT REQUESTING NEB TX, RT CALLED TO BEDSIDE, CALL LIGHT IN REACH, POC ONGOING.
--- NOTE | 2023-09-05 05:05 | NUR ---
PT RESTING IN BED, NO SIGNS OF DISTRESS NOTED, RESP EVEN AND UNLABORED. PT DENIES ANY NEEDS OR COMPLAINTS AT THIS TIME. CALL LIGHT IN REACH, POC ONGOING
[2023-09-05 06:35] LABS: BASO% 0.1 % (0-3); HEMATOCRIT 35.5 % (37.0-47.0); HEMOGLOBIN 11.6 g/dl (12.0-16.0); IMMATURE GRANULOCYTES 4.7 % (0.0-5.0); LYMPH% 9.3 % (15-41); MEAN CELL VOLUME 99.2 fL CALC (80.0-100.0); MEAN CORPUSCULAR HGB 32.4 pG CALC (26.0-32.0); MEAN CORPUSCULAR HGB CONC 32.7 g/dL CAL (32.0-36.0); MONO% 6.6 % (2-13); NEUT# 9.21 thou/uL (2.00-7.15); NEUT% 79.3 % (42-76); RED BLOOD COUNT 3.58 mill/uL (4.20-5.60); RED CELL DISTRI WIDTH 12.1 % (11.5-15.5)
[2023-09-05 07:12] LABS: ALBUMIN 3.9 g/dL (3.2-5.0); ALKALINE PHOSPHATASE 82 u/l (38-126); ANION GAP 8 (6-22 (CALC)); BILIRUBIN, TOTAL 0.4 mg/dL (0.02-1.3); BUN 22 mg/dL (8-23); BUN/CREATININE RATIO 47 (12-20 (CALC)); CARBON DIOXIDE 33 mmol/l (22-30); CHLORIDE 101 mmol/l (95-108); CREATININE 0.5 mg/dL (0.5-1.0); GFR FOR AFR.AMER. > 60 ML/MIN (>=60 (CALC)); GFR OTHER RACES > 60 ML/MIN (>=60 (CALC)); SGOT/AST 46 u/l (9-36); SODIUM 139 mmol/l (137-146); TOTAL PROTEIN 6.5 g/dL (6.3-8.2)
--- NOTE | 2023-09-05 08:00 | NUR ---
ALERT, ORIENTED, SOMEWHAT ANXIOUS. STATES FEELS WEAKER EVERYDAY. GET VERY SHORT OF BREATH WITH ACTIVITY. NEED CUEING TO BREATHE THROUGH NOSE AND OUT MOUTH TO SLOW RESPIRATIONS DOWN. REFUSING DUONEBS STATES MAKES HER TO NERVOUS. AWARE. MAINTAINENCE COPD MEDS BROUGHT IN FROM HOME, WILL PROVIDE TO PHARMACY FOR BARCODING ONCE ORDERS ARE GIVEN. DAUGHTER AT BEDSIDE.
--- NOTE | 2023-09-05 12:00 | NUR ---
NEW ORDERS RECEIVED FOR HOME INHAILERS. PROVIDED TO PHARMACY FOR BARCODING. CONTINUES TO BE VERY SHORT OF BREATH WITH ACTIVITY. SHE BECOMES ANXIOUS AND REQUIRES FREQUENT REMINDERS TO USE PROPER BREATHING TECHNIQUES..VERBALIZES UNDERSTANDING..
--- NOTE | 2023-09-05 16:00 | NUR ---
resting in bed with eyes closed. no s/s of resp distress or pain.
--- NOTE | 2023-09-05 20:00 | NUR ---
RECEIVED REPORT FROM DAYSHIFT NURSE. PT IS LYING IN BED AT THIS TIME. ADVISED PT OF CHANGE OF SHIFT AND OF STAFF. PT HAS NO COMPLAINTS AT THIS TIME. PLAN OF CARE HAS BEEN ESTABLISHED FOR THE NIGHT. SAFETY PRECAUTIONS IN PLACE AND CALL LIGHT WITHIN REACH.
--- NOTE | 2023-09-06 | NUR ---
PT IS SLEEPING COMFORTABLY AT THIS TIME. NO SIGNS OF PAIN SAFETY PRECAUTIONS IN PLACE AND CALL LIGHT WITHIN REACH.
[2023-09-06 03:34] VITALS: BP 123/70
--- NOTE | 2023-09-06 04:05 | NUR ---
PT IS IN BED SLEEPING COMFORTABLY AT THIS TIME. NO SIGNS OF PAIN OR DISTRESS. SAFETY PRECAUTIONS IN PLACE AND CALL LIGHT WITHIN REACH.
[2023-09-06 04:42] VITALS: BP 123/70
[2023-09-06 06:55] LABS: BASO% 0.2 % (0-3); HEMATOCRIT 38.3 % (37.0-47.0); HEMOGLOBIN 12.4 g/dl (12.0-16.0); IMMATURE GRANULOCYTES 5.9 % (0.0-5.0); LYMPH% 8.8 % (15-41); MEAN CELL VOLUME 99.5 fL CALC (80.0-100.0); MEAN CORPUSCULAR HGB 32.2 pG CALC (26.0-32.0); MEAN CORPUSCULAR HGB CONC 32.4 g/dL CAL (32.0-36.0); NEUT# 10.49 thou/uL (2.00-7.15); NEUT% 79.1 % (42-76); RED BLOOD COUNT 3.85 mill/uL (4.20-5.60); RED CELL DISTRI WIDTH 11.8 % (11.5-15.5)
[2023-09-06 07:23] LABS: ALBUMIN 3.8 g/dL (3.2-5.0); ALKALINE PHOSPHATASE 76 u/l (38-126); ANION GAP 7 (6-22 (CALC)); BILIRUBIN, TOTAL 0.4 mg/dL (0.02-1.3); BUN 23 mg/dL (8-23); BUN/CREATININE RATIO 44 (12-20 (CALC)); CARBON DIOXIDE 34 mmol/l (22-30); CHLORIDE 100 mmol/l (95-108); CREATININE 0.5 mg/dL (0.5-1.0); GFR FOR AFR.AMER. > 60 ML/MIN (>=60 (CALC)); GFR OTHER RACES > 60 ML/MIN (>=60 (CALC)); POTASSIUM 4.4 mmol/l (3.5-5.1); SGOT/AST 40 u/l (9-36); SODIUM 137 mmol/l (137-146); TOTAL PROTEIN 6.6 g/dL (6.3-8.2)
[2023-09-06 07:44] VITALS: BP 164/78
--- NOTE | 2023-09-06 08:00 | NUR ---
PT SITTING UP IN SIDE OF BED EATING BREAKFAST, PT ALERT AND ORIENTED X 3. PT HAS NO C/O PAIN AT THIS TIME. PT HAS TELE ON WITH LEADS ATTACHED. PT LUNGS WITH WHEEZING NOTED AND DIMNISHED IN LOWER LOBES; PT BREATHING IS LABORED; CONTINUES TO WEAR O2 @ 2 LITERS VIA NC WITH SATS AT 98%. ABD IS SOFT WITH ACTIVE BS. PT REQUESTING A PUREWICK BE PLACED, STATES SHE IS TOO SHORT OF BREATH TO GET TO THE BEDSIDE COMMODE; PUREWICK PLACED. PT IV SITE TO [facility], CLEAN, DRY AND INTACT. PT HAS CALL LIGHT WITHIN REACH AND SAFETY MEASURES IN PLACE AT THIS TIME.
[2023-09-06 11:15] VITALS: BP 162/84
--- NOTE | 2023-09-06 12:00 | NUR ---
PT IN BED WITH HOB, WAITING FOR DAUGHTER TO PICK HER UP. PT HAS NO C/O PAIN. CONINUES TO WEAR 02 VIA NC. PT HAS CALL LIGHT WITHIN REACH AND SAFETY MEASURES IN PLACE AT THIS TIME.
[2023-09-06] MEDS ORDERED: PREDNISONE10 MG PO (12:29)
--- NOTE | 2023-09-06 13:26 | NUR ---
Discharge instructions given. Patient verbalizes understanding of same. Discharged in stable condition via Wheelchair to Home with *Other. All belongings sent with pt.
== END 2023-09-06 14:26 | disposition home or self-care (01) | DRG 191 ==
LOC: ED 11:44 → ED-I 14:00 → ED 14:53 → MS2 14:54
PROVIDERS: Nurse Practitioner; Nurse Practitioner Family; Student in an Organized Health Care Education/Training Program; ADMIT Student in an Organized Health Care Education/Training Program; ATTEND Student in an Organized Health Care Education/Training Program
DX: J44.1 Chronic obstructive pulmonary disease with (acute) exacerbation (principal); I44.2 Atrioventricular block, complete; J96.11 Chronic respiratory failure with hypoxia; I10 Essential (primary) hypertension; E03.9 Hypothyroidism, unspecified; Z99.81 Dependence on supplemental oxygen; Z87.891 Personal history of nicotine dependence; Z20.822 Contact with and (suspected) exposure to COVID-19; Z95.0 Presence of cardiac pacemaker
CPT/HCPCS: J1650